=== PATIENT | female | born 1970 | race Caucasian/White ===

== ENCOUNTER 2017-04-21 20:01 | Emergency (ER) | payer BC, OTHER ==
[2017-04-21 21:51] VITALS: BP 200/110
--- NOTE | 2017-04-21 22:02 | UC ---
Eye Complaint HPI - HPI Summary HPI Summary: 2 DAYS OF BILATERAL EYE REDNESS AND IRRITATION. FEEL ITCHY. EYES ARE RED AND WATERY. HAS INTERMITTENT NAUSEA AND VALENZUELA. HAS PHOTOPHOBIA. WAS SEEING HALOS AROUND LIGHTS YESTERDAY BUT THAT HAS SINCE IMPROVED. PT ALSO REPORTS SIGNIFICANT NASAL CONGESTION THAT SEEMS IMPROVED AFTER CLARITIN. NO FB SENSATION. - History of Current Complaint Chief Complaint: UCEye Stated Complaint: EYES BURNING,CONGESTION,HALOS Time Seen by Provider: 04/21/17 21:22 Hx Obtained From: Patient Hx Last Menstrual Period: 2 WEEKS AGO Onset/Duration: Gradual Onset, Lasting Days, Still Present Severity Initially: Moderate Severity Currently: Moderate Pain Intensity: 7 Pain Scale Used: 0-10 Numeric Location of Injury: Conjunctiva Aggravating Factor(s): Light, Blinking Alleviating Factor(s): Nothing Associated Signs And Symptoms: Positive: Photophobia, Drainage (Clear) - Allergies/Home Medications Allergies/Adverse Reactions: Allergies Allergy/AdvReac Type Severity Reaction Status Date / Time Ciprofloxacin [From Cipro] Allergy Severe HIVES, Verified 04/21/17 22:24 SWELLING Hydrocodone [From Vicodin] Allergy Severe HIVES, Verified 04/21/17 22:24 SWELLING Latex Allergy Intermediate Rash Verified 04/21/17 22:24 Adhesive Tape Allergy Rash Verified 04/21/17 22:24 Home Medications: Home Medications Loratadine [Claritin 10 MG CAP] 10 mg PO ONCE PRN 04/21/17 [History Confirmed ] Thera Tears* ONCE PRN 04/21/17 [History] PMH/Surg Hx/FS Hx/Imm Hx Endocrine History: Hypothyroidism Cardiovascular History: Hypertension - Surgical History Surgical History: Yes Surgery Procedure, Year, and Place: C SECTIONS-1998/2005-TUBAL LIGATION 2005. CYSTS REMOVED FROM RIGHT EYE 2006. CYSTS REMOVED MULTIPLE TIME UNDER BILATERAL ARMS. NOVASURE ABLATION, 2007, [facility]. KNEE SURGERY - Family History Known Family History: Positive: Hypertension Family History: NO FAMILY H/O GLAUCOMA - Social History Alcohol Use: None Alcohol Amount: HOLIDAYS Substance Use Type: None Smoking Status (MU): Former Smoker Amount Used/How Often: PACK A DAY Have You Smoked in the Last Year: No When Did the Patient Quit Smoking/Using Tobacco: 1997 Review of Systems Constitutional: Negative Eyes: Blurred Vision, Drainage, Eye Redness, Photophobia ENT: Nasal Discharge Respiratory: Negative Cardiovascular: Negative Gastrointestinal: Nausea Neurological: Headache All Other Systems Reviewed And Are Negative: Yes Physical Exam Triage Information Reviewed: Yes Appearance: Well-Appearing, Well-Nourished, Pain Distress - MODERATE Vital Signs: Initial Vital Signs Temp 99.1 F 04/21/17 20:32 Pulse 95 04/21/17 20:32 Resp 16 04/21/17 20:32 Pulse Ox 100 04/21/17 20:32 Vital Signs Reviewed: Yes Eyes: Positive: Conjunctiva Inflamed, Discharge - CLEAR ENT: Positive: Hearing grossly normal Neck: Positive: Supple Respiratory: Positive: No respiratory distress, No accessory muscle use Cardiovascular: Positive: Pulses Normal Abdomen Description: Positive: Soft Musculoskeletal: Positive: No Edema Neurological: Positive: Alert Psychological: Positive: Age Appropriate Behavior Skin: Negative: rashes Eye Complaint Course/Dx - Course Course Of Treatment: DUE TO PT C/O EYE PAIN/REDNESS, NAUSEA, VALENZUELA, HALOS AND DANGEROUSLY ELEVATED BP WILL SEND TO [facility] ED FOR FURTHER EVALUATION. - Differential Dx/Diagnosis Provider Diagnoses: 1. UNCONTROLLED HYPERTENSION. 2. BILATERAL EYE PAIN/REDNESS Discharge - Discharge Plan Condition: Stable Disposition: OTHER Discharge Disposition Comment: TO [facility] ED BY PRIVATE CAR Patient Education Materials: Hypertensive Crisis (ED) Referrals: Levi Saldana MD [Primary Care Provider] - If Needed Additional Instructions: GO DIRECTLY TO THE [facility] ED FROM HERE FOR FURTHER EVALUATION OF YOUR ELEVATED BP AND YOUR EYE PAIN.
== END 2017-04-21 22:02 ==
LOC: UCEAST 20:01
DX: H57.8 Other specified disorders of eye and adnexa (principal); Z88.1 Allergy status to other antibiotic agents; Z91.040 Latex allergy status; Z88.5 Allergy status to narcotic agent; Z91.048 Other nonmedicinal substance allergy status; E03.9 Hypothyroidism, unspecified; Z87.891 Personal history of nicotine dependence
CPT/HCPCS: 99212; G0463

== ENCOUNTER 2017-04-21 22:19 | Emergency (ER) | payer BC ==
[2017-04-21 22:24] VITALS: BP 234/121
== END 2017-04-21 23:09 | disposition left against medical advice (07) ==
LOC: ED 22:19
DX: H57.10 Ocular pain, unspecified eye (principal); H53.9 Unspecified visual disturbance; Z53.21 Procedure and treatment not carried out due to patient leaving prior to being seen by health care provider

== ENCOUNTER 2017-05-20 05:52 | Day surgery (SDC) | payer BC, OTHER ==
[2017-05-20] MEDS ORDERED: Metoclopramide TAB* 10 MG PO ONE (06:00)
[2017-05-20] MEDS ORDERED: Famotidine IV* 10 MG/ML 2 ML (20 mg) IV ONE (06:00)
[2017-05-20] MEDS ORDERED: Buffered Lidocaine 0.9% SYRIN* 5 ML/SYR SYRINGE INTRADERM ONE (06:00)
[2017-05-20] MEDS ORDERED: Famotidine IV* 10 MG/ML 2 ML (20 mg) ONE (06:01)
[2017-05-20] MEDS ORDERED: Buffered Lidocaine 0.9% SYRIN* 5 ML/SYR SYRINGE ONE (06:02)
[2017-05-20] MEDS ORDERED: Metoclopramide TAB* 10 MG ONE (06:02)
[2017-05-20] MEDS ORDERED: ceFAZolin 2 GM PREMIX (*) 2 GM/50 ML BAG IVPB ONE (06:02)
[2017-05-20] MEDS ORDERED: Ondansetron INJ* 2 MG/ML VIAL ONE ×2 (07:12→10:12)
[2017-05-20] MEDS ORDERED: Propofol* 10 MG/ML 20 ML BTL IV PUSH ONE ×3 (07:12→09:01)
[2017-05-20] MEDS ORDERED: Ketorolac INJ* 30 MG/ML 1 ML VIAL ONE (07:12)
[2017-05-20] MEDS ORDERED: Lidocaine 2% PF * 5 ML VIAL ONE (07:12)
[2017-05-20] MEDS ORDERED: KETAMINE HCL* 50 MG/ML 10 ML VIAL ONE (07:12)
[2017-05-20] MEDS ORDERED: fentaNYL* 50 MCG/ML 2 ML VIAL (100 MCG VIAL) ONE (07:12)
[2017-05-20] MEDS ORDERED: Labetalol IV* 5 MG/ML 20 ML VIAL ONE (07:12)
[2017-05-20] MEDS ORDERED: Dexamethasone IV* 4 MG/ML 1 ML (4 MG) ONE (07:12)
[2017-05-20] MEDS ORDERED: Midazolam* 1 MG/ML 10 ML VIAL (10 MG) ONE (07:12)
[2017-05-20] MEDS ORDERED: Bupivacaine 0.5% SDV PF* 30 ML VIAL ONE ×2 (07:39→07:56)
[2017-05-20] MEDS ORDERED: Lidocaine 1% MPF wEPI 200,000* 30 ML SDV ONE (07:56)
[2017-05-20] MEDS ORDERED: Ondansetron INJ* 2 MG/ML VIAL IV PRN (08:38)
[2017-05-20] MEDS ORDERED: fentaNYL* 50 MCG/ML 2 ML VIAL (100 MCG VIAL) IV PRN (08:38)
--- NOTE | 2017-05-20 10:53 | OP ---
DATE OF OPERATION: 05/20/17 [facility] DATE OF : 70 SURGEON: Russell Mckinley MD SENIOR BUSINESS ARCHITECT: Chika Perales RPA ANESTHESIOLOGIST: Hakan Dunn MD ANESTHESIA: Spinal and sedation. PRE-OP DIAGNOSES: 1. Patellofemoral syndrome, right knee. 2. Chondromalacia patella, right knee. POST-OP DIAGNOSES: 1. Patellofemoral syndrome, right knee. 2. Chondromalacia patella, right knee. OPERATIVE PROCEDURE: 1. Right knee diagnostic arthroscopy. 2. Anteromedialization, tibial tubercle. ESTIMATED BLOOD LOSS: 60 cc. COMPLICATIONS: None. SUMMARY: Ms. Tobar is a 46-year-old female who had injured her knee at work when she stepped in a hole. She initially had more troubles along the back side of the knee, but since then had more troubles about the anterior aspect of the knee. She had been treated extensively with conservative treatments and did undergo a knee arthroscopy with a lateral release. That, however, gave her some temporary relief, but as time went by, she lost all the effects of it. She continued to have very specific pain about the patella, especially with going up and down stairs, hills and having the knee bent for long periods of time. I discussed with her that an anteromedialization should work well to decrease her pain and improve her function. We even did discuss patellofemoral replacement a little bit, but considering that at the time of arthroscopy, she did not have exposed bone, I did not think joint replacement would be our next best step. Risks of surgery such as infection, scar formation , stiffness, DVT, pulmonary embolism, extensor mechanism failure, and continued pain were some of the risks discussed. She had wished to proceed. DESCRIPTION OF PROCEDURE: The patient was brought to the OR and spinal anesthesia was introduced. Right knee was prepped and then draped. Skin over the incision layer was infiltrated using 0.5% Marcaine and 1% lidocaine with epinephrine. Skin had been marked about 5 cm downward from the tibial tubercle , so I could have adequate exposure and I came upwards a little bit to the inferior pole of patella, so I could see the inferior pole of the patella as well. I began with a knee arthroscopy and lateral portal was made first using an 11 blade. Blunt trocar at the sheath was easily introduced into the knee and passed under the patella. Camera was introduced into the sheath and the knee was allowed to insufflate. Pulling back, patellofemoral joint was nicely visualized, it could be seen how she had overhang and tilt with just sitting there, the patella could be seen sitting off to the side. With flexion of the knee, she articulated mostly on the lateral facet and did not fully engage into the notch. Scope was removed and attention was turned anteriorly. Skin incision was made using a 10 blade and was carried down to the extensor mechanism. Mets was then used to elevate the soft tissues so that she had full thickness flaps and I had nice exposure of the anterior crest of the tibia along with the tibial tubercle. Small bleeders encountered were ligated using electrocautery. Periosteum was sharply incised on both medial and lateral sides of the tibial tubercle and carried downwards for about 5 cm. This was measured. Espino was then used on the lateral side to peel some of the muscle away from the bone so that it would have nice exposure. A 1.5 drill was then used to score the medial and lateral sides where I would do the osteotomy. Osteotome was then used to connect the dots first on the medial and then on the lateral side and it could be seen where I had nicely, measuring down for 5 cm from the attachment of the patellar tendon. I then drilled a hole with a 2.5 drill and placed a 3.5 screw so that I could then rotate the tibial tubercle. Osteotome was then used to score the crest of the tibia right in that area. With placing 4 of the osteotomes together, it could be seen how I could nicely anteriorize the tibial tubercle and then with pushing, I was able to push over a little bit as well. It was seen where I had some overhang where I had the raw exposed bone. Bony block was called for and was trimmed so that it fit nicely under the tubercle and osteotomes were removed. With holding her over, I thought I had a nice 7 to 8 mm of medialization and hole was drilled and a screw was placed to hold this in position. Nice positioning was obtained. Scope was reentered into the knee joint and it could be seen now where she tracked more midline and came right down the notch as opposed to sitting just on the lateral facet. Lateral release had been done once again. Knee was copiously pulse lavaged. A little bit of bone wax was placed on the exposed lateral side where the bone had been lifted. A little bit of the capsule and fascia were brought together, but there was a very specific gap where the anterior compartment had been pulled away from that portion of the bone. Subcutaneous tissues were reapproximated with 2-0 Vicryl. Skin was closed using nylon. Sterile dressing and a knee immobilizer along with a Cryo/ Cuff were all applied in the OR. The patient was then awakened, stable on transfer to the recovery room. DISPOSITION/DISCHARGE SUMMARY: Ms. Tobar is a 46-year-old female who just underwent anterior medialization of the tibial tubercle. She tolerated the procedure well with no complications. She is currently rolling towards recovery room. When she wakes a bit more from her sedation, can tolerate p.o., has her pain well controlled, and void, she will be discharged home. Script for [facility]art will be e- scribed in. She has instructions to keep her dressing clean , dry, and intact for the next 3 days, but after that may take dressing down, cover sutures with a large gauze. She may shower, wash, and get it wet, but should not soak it. She should continue with the immobilizer and not bend the knee. If there are any problems, there are instructions to give the office a call. Otherwise, I would like to see her in the office in approximately 7 to 10 days, remove her sutures, and we will continue with the knee immobilizer for 4 weeks where she will not bend. At 4 weeks, we will start a gentle range of motion program. [id number]/[facility] #: [id number] ANUP
[2017-05-20] MEDS ORDERED: oxyCODONE/Acetamin 5/325 MG* TAB ONE (11:48)
[2017-05-20] MEDS ORDERED: Enalaprilat IV* 1.25 MG/ML 2 ML VIAL (2.5 MG) ONE (13:10)
--- NOTE | 2017-05-20 14:09 | RAD ---
HISTORY: Status post radiosurgery COMPARISONS: February 25, 2017 VIEWS: 3, Frontal and lateral views of the right knee FINDINGS: BONE DENSITY: Normal. BONES: The patient is status post graft placement along the proximal tibia. There is no hardware failure or osteolysis. JOINTS: There is no arthropathy. ALIGNMENT: There is no dislocation. SOFT TISSUES: Unremarkable. OTHER FINDINGS: None. IMPRESSION: POST SURGICAL CHANGE TO THE PROXIMAL TIBIA
[2017-05-20 15:24] VITALS: BP 159/84
== END 2017-05-20 15:00 | disposition home or self-care (01) ==
LOC: OR 05:52
PROVIDERS: ATTEND Orthopaedic Surgery
DX: M22.2X1 Patellofemoral disorders, right knee (principal); M22.41 Chondromalacia patellae, right knee; Z87.891 Personal history of nicotine dependence; I10 Essential (primary) hypertension; E03.9 Hypothyroidism, unspecified; F41.9 Anxiety disorder, unspecified
CPT/HCPCS: A9270-GY; C1713; J0690; J1100; J1885; J2001; J2250; J2405; J2704; J3010

== ENCOUNTER 2018-05-13 15:33 | Emergency (ER) | payer BC, OTHER ==
[2018-05-13 16:01] VITALS: BP 177/90
== END 2018-05-13 16:56 | disposition left against medical advice (07) ==
LOC: UCEAST 15:33
DX: R05 Cough (principal); R09.89 Other specified symptoms and signs involving the circulatory and respiratory systems; Z53.21 Procedure and treatment not carried out due to patient leaving prior to being seen by health care provider

== ENCOUNTER 2018-12-06 20:06 | Emergency (ER) | payer BC ==
--- OUTSIDE RECORDS SUMMARY | 2018-12-06 20:16 | XMS REPORT | Continuity of Care Document ---
:1970 External Reference #:[id number] Author Name Elsy Gates Care Team Providers Name Role Phone Levi Saldana MD Primary Care Physician Unavailable Payers Date Identification Numbers Payment Provider Subscriber Effective: 2015 Policy Number: [id number] [facility] Insurance [facility] Keely Tobar Onset: 2015 Group Number: [id number] [address] [id number] Group Name: [id number] [place] [address] [place] Expires: 2015 Policy Number: [id number] [facility] Insurance [facility] Keely Tobar Onset: 2015 Group Number: [id number] [address] [id number] Group Name: [id number] [place] [id number] PayID: [place] Onset: 2009 Policy Number: [id number] Sherita Hollis Keely Tobar Group Number: [id number] [address] PayID: [place] [address] Expires: 2016 Policy Number: [id number] [facility] Insurance [facility] Keely Tobar Onset: 2015 Group Number: [id number] [address] [id number] Group Name: [id number] [place] [id number] PayID: [place] Problems Active Problems Provider Date H/O: hypertension Russell Mckinley M.D. Onset: 12/15/2014 Dyspnea Russell Mckinley M.D. Onset: 12/15/2014 Heartburn Russell Mckinley M.D. Onset: 12/15/2014 Gastroesophageal reflux disease Russell Mckinley M.D. Onset: 12/15/2014 Finding of frequency of urination Russell Mckinley M.D. Onset: 12/15/2014 Anxiety Russell Mckinley M.D. Onset: 12/15/2014 Hypothyroidism Russell Mckinley M.D. Onset: 12/15/2014 Knee joint effusion Russell Mckinley M.D. Onset: 01/07/2018 Chondromalacia of patella Russell Mckinley M.D. Onset: 08/09/2016 Strain of other muscle(s) and tendon(s) of Russell Mckinley M.D. Onset: 2014 posterior muscle group at lower leg level, right leg, subsequent encounter Derangement of knee Russell Mckinley M.D. Onset: 04/07/2015 Sprain of knee and leg Russell Mckinley M.D. Onset: 03/09/2015 Calcific tendinitis of shoulder Russell Mckinley M.D. Onset: 12/15/2014 Social History Type Date Description Comments Sex Unknown Lives With ETOH Use Denies alcohol use Tobacco Use Start: Unknown End: Patient is a former smoker Unknown Smoking Status Reviewed: 12/04/18 Patient is a former smoker Exercise Type/Frequency Walks daily Allergies, Adverse Reactions, Alerts Active Allergies Reaction Severity Comments Date Vicodin 12/15/2014 Cipro 12/15/2014 Latex 12/15/2014 Adhesive Tape 12/15/2014 Medications Active Medications SIG Qnty Indications Ordering Provider Date Toilet Seat Elevator one toilet seat Russell Mckinley, 05/08/2017 Misc elevator M.DPhyllis Levothyroxine Sodium 1 by mouth every Unknown 112MCQ day Tablets Spironolactone 1 by mouth every Unknown 100mg day Tablets History Medications Meloxicam take one tablet 30tabs Z47.89 Russell Mckinley, 10/22/2017 - 15mg Tablets by mouth every M.D. 11/11/2017 day x 10 days, then take daily as needed Ibuprofen 200 400-600mg every 120tabs Russell Mckinley, 05/20/2017 - 200mg 6 hours as M.D. 12/01/2018 Tablets needed for pain. Aspirin 1 tablet daily 30tabs Russell Mckinley, 05/20/2017 - 325mg Tablets after surgery M.D. 11/18/2017 by mouth post-operativel y Acetaminophen-Codeine one to two 90tabs Russell Mckinley, 05/20/2017 - #3 tablets as M.D. 11/11/2017 300-30mg Tablets needed orally for pain every 4 -6 hours Ondansetron one tablet 10tabs Russell Mckinley, 05/20/2017 - 4mg Tablets every 8 hours M.D. 12/02/2018 Dispers as needed for nausea Shower Chair Shower Chair Russell Mckinley, 05/08/2017 - s/p knee M.D. 11/11/2017 surgery Neurontin 1 by mouth 30caps Russell Mckinley, 03/14/2016 - 300mg every night at M.D. 04/16/2016 Capsules bedtime Percocet take 1-2 pills 30tabs S83.241A Russell Mckinley, 12/23/2015 - 5-325mg every 4-6 hours M.D. 01/11/2016 Tablets as needed pain Valium take one tablet 2tabs Russell Mckinley, 11/04/2015 - 5mg Tablets by mouth one M.D. 03/14/2016 hour prior to mri. may take second tab one hour later if needed. Voltaren apply 4 grams 500gm Russell Mckinley, 09/15/2015 - 1% Gel to affected M.D. 2015 area twice a day as needed Mobic once daily with 30tabs Russell Mckinley, 05/12/2015 - 15mg Tablets food M.D. 2015 Flexeril 1 by mouth qhs 30tabs Russell Mckinley, 03/09/2015 - 10mg Tablets as needed M.D. 04/16/2016 Levothyroxine Sodium 1 by mouth Russell Mckinley, 12/15/2014 - every day M.D. 08/26/2017 200mcg Tablets Neurontin 1 by mouth 30caps Russell Mckinley, 12/15/2014 - 300mg every night at M.D. 03/08/2015 Capsules bedtime Naprosyn 1 by mouth 60tabs Russell Mckinley, 12/15/2014 - 375mg Tablets twice a day as M.D. 03/08/2015 needed Lisinopril Unknown - 05/07/2017 Fluticasone Unknown - 2015 Hydrocodone 1 tab every 6 Unknown - Bitartrate/Acetaminop hours 03/08/2015 hen 2.5-325mg Tablets Spironolactone take 1 tablet Unknown - 25mg by mouth once 05/07/2017 Tablets daily Chlorthalidone Unknown - 25mg 05/07/2017 Tablets Naproxen Sodium 1 tab as needed Unknown - 220mg 01/13/2018 Tablets Ibuprofen 200 1 twice a day Unknown - 200mg as needed 12/09/2017 Tablets Lisinopril 1 by mouth Unknown - 40mg Tablets every day 12/09/2017 Trulicity sc weekly Unknown - 0.75mg/0.5ML 09/16/2017 Solution Pen-Inject Chlorthalidone 1 by mouth Unknown - 25mg every day 12/03/2018 Tablets Vital Signs Date Vital Result Comment 12/04/2018 9:13am Height 62 inches 5'2" Weight 219.12 lb Heart Rate 78 /min BP Systolic Sitting 128 mmHg BP Diastolic Sitting 80 mmHg Body Temperature 98.1 F BMI (Body Mass Index) 40.1 kg/m2 02/04/2018 1:26pm Height 62 inches 5'2" Weight 216.00 lb Heart Rate 76 /min BP Systolic Recheck 124 mmHg BP Diastolic Recheck 76 mmHg Respiratory Rate 16 /min Body Temperature 98.4 F BMI (Body Mass Index) 39.5 kg/m2 01/07/2018 1:57pm Height 62 inches 5'2" Weight 220.00 lb Heart Rate 72 /min BP Systolic Recheck 152 mmHg BP Diastolic Recheck 88 mmHg Respiratory Rate 16 /min Body Temperature 98.2 F BMI (Body Mass Index) 40.2 kg/m2 11/26/2017 1:01pm Height 62 inches 5'2" Weight 217.00 lb Heart Rate 72 /min BP Systolic 160 mmHg BP Diastolic 94 mmHg Respiratory Rate 16 /min Body Temperature 98.6 F BMI (Body Mass Index) 39.7 kg/m2 10/22/2017 9:21am Height 62 inches 5'2" Weight 214.00 lb Heart Rate 76 /min BP Systolic Recheck 132 mmHg BP Diastolic Recheck 84 mmHg Respiratory Rate 16 /min Body Temperature 98.5 F BMI (Body Mass Index) 39.1 kg/m2 09/24/2017 10:15am Height 62 inches 5'2" Weight 212.00 lb Heart Rate 80 /min BP Systolic Recheck 148 mmHg BP Diastolic Recheck 86 mmHg Respiratory Rate 16 /min Body Temperature 98.2 F BMI (Body Mass Index) 38.8 kg/m2 09/03/2017 11:10am Height 62 inches 5'2" Weight 216.00 lb Heart Rate 80 /min BP Systolic Recheck 124 mmHg BP Diastolic Recheck 78 mmHg Respiratory Rate 16 /min Body Temperature 98.1 F BMI (Body Mass Index) 39.5 kg/m2 08/01/2017 10:00am Height 62 inches 5'2" Weight 210.00 lb Heart Rate 76 /min BP Systolic Recheck 162 mmHg BP Diastolic Recheck 88 mmHg Respiratory Rate 16 /min Body Temperature 98.4 F BMI (Body Mass Index) 38.4 kg/m2 07/11/2017 8:06am Height 62 inches 5'2" Weight 210.00 lb Heart Rate 80 /min BP Systolic Recheck 132 mmHg BP Diastolic Recheck 86 mmHg Respiratory Rate 16 /min Body Temperature 98.7 F BMI (Body Mass Index) 38.4 kg/m2 06/20/2017 9:05am Height 62 inches 5'2" Weight 215.00 lb Heart Rate 80 /min BP Systolic Recheck 126 mmHg BP Diastolic Recheck 84 mmHg Respiratory Rate 16 /min Body Temperature 98.5 F BMI (Body Mass Index) 39.3 kg/m2 05/30/2017 10:57am Height 62 inches 5'2" Weight 210.00 lb Heart Rate 80 /min BP Systolic Recheck 128 mmHg BP Diastolic Recheck 84 mmHg Respiratory Rate 16 /min Body Temperature 98.7 F BMI (Body Mass Index) 38.4 kg/m2 05/08/2017 8:55am Height 62 inches 5'2" Weight 215.00 lb BP Systolic 128 mmHg BP Diastolic 82 mmHg Respiratory Rate 20 /min Pain Level 3 BMI (Body Mass Index) 39.3 kg/m2 03/27/2017 9:01am Height 62 inches 5'2" Weight 215.00 lb BP Systolic 120 mmHg BP Diastolic 72 mmHg Respiratory Rate 20 /min Pain Level 3 BMI (Body Mass Index) 39.3 kg/m2 02/06/2017 11:09am Height 62 inches 5'2" Weight 215.00 lb BP Systolic 124 mmHg BP Diastolic 80 mmHg Respiratory Rate 20 /min Pain Level 7 BMI (Body Mass Index) 39.3 kg/m2 12/19/2016 11:04am Height 62 inches 5'2" Weight 215.00 lb Heart Rate 76 /min BP Systolic 130 mmHg BP Diastolic 80 mmHg Respiratory Rate 16 /min Body Temperature 98.8 F Pain Level 7 BMI (Body Mass Index) 39.3 kg/m2 10/31/2016 10:45am Height 62 inches 5'2" Weight 215.00 lb Respiratory Rate 16 /min Body Temperature 97.7 F Pain Level 7 BMI (Body Mass Index) 39.3 kg/m2 09/19/2016 11:22am Height 62 inches 5'2" Weight 205.00 lb Heart Rate 205 /min Respiratory Rate 205 /min Body Temperature 205.0 F Pain Level 5 BMI (Body Mass Index) 37.5 kg/m2 08/09/2016 11:02am Height 62 inches 5'2" Weight 205.00 lb Heart Rate 72 /min BP Systolic Recheck 140 mmHg BP Diastolic Recheck 86 mmHg Respiratory Rate 16 /min Body Temperature 98.5 F BMI (Body Mass Index) 37.5 kg/m2 05/16/2016 3:38pm Height 62 inches 5'2" Weight 210.00 lb Heart Rate 77 /min Respiratory Rate 19 /min Pain Level 4 BMI (Body Mass Index) 38.4 kg/m2 04/11/2016 10:49am Height 62 inches 5'2" Weight 210.00 lb Pain Level 5 BMI (Body Mass Index) 38.4 kg/m2 03/14/2016 10:22am Height 62 inches 5'2" Weight 210.00 lb Pain Level 7 BMI (Body Mass Index) 38.4 kg/m2 02/01/2016 12:59pm Height 62 inches 5'2" Weight 210.00 lb Pain Level 4 BMI (Body Mass Index) 38.4 kg/m2 01/11/2016 12:58pm Height 62 inches 5'2" Weight 210.00 lb Body Temperature 98.9 F Pain Level 5 BMI (Body Mass Index) 38.4 kg/m2 12/23/2015 2:17pm Height 62 inches 5'2" Weight 210.00 lb Heart Rate 76 /min BP Systolic Sitting 132 mmHg BP Diastolic Sitting 80 mmHg Respiratory Rate 16 /min Pain Level 5 BMI (Body Mass Index) 38.4 kg/m2 11/30/2015 9:01am Height 62 inches 5'2" Weight 210.00 lb Heart Rate 64 /min Respiratory Rate 16 /min Pain Level 6 BMI (Body Mass Index) 38.4 kg/m2 10/27/2015 12:00pm Height 62 inches 5'2" Weight 210.00 lb Heart Rate 68 /min Respiratory Rate 16 /min Pain Level 6 BMI (Body Mass Index) 38.4 kg/m2 09/15/2015 3:31pm Height 62 inches 5'2" Weight 210.00 lb Pain Level 5 BMI (Body Mass Index) 38.4 kg/m2 08/04/2015 11:37am Height 62 inches 5'2" Weight 210.00 lb Pain Level 3 BMI (Body Mass Index) 38.4 kg/m2 06/15/2015 11:27am Height 62 inches 5'2" Weight 210.00 lb BMI (Body Mass Index) 38.4 kg/m2 05/12/2015 10:32am Height 62 inches 5'2" Weight 210.00 lb BMI (Body Mass Index) 38.4 kg/m2 04/07/2015 9:44am Height 62 inches 5'2" Weight 210.00 lb Pain Level 6 BMI (Body Mass Index) 38.4 kg/m2 03/09/2015 9:34am Height 62 inches 5'2" Weight 210.00 lb Pain Level 5 daily, increases with driving BMI (Body Mass Index) 38.4 kg/m2 12/15/2014 11:31am Height 62 inches 5'2" Weight 210.19 lb Heart Rate 83 /min BP Systolic 186 mmHg BP Diastolic 113 mmHg Respiratory Rate 18 /min Pain Level 7 BMI (Body Mass Index) 38.4 kg/m2 Results Test Date Facility Test Result H/L Range Note Laboratory test 05/20/2017 [facility] Cancellous Block SEE RESULTS 1, [address] [place] [address] NOTE> [phone] Laboratory test 12/29/2015 [facility] Surgical SEE RESULT [address] [place] [address] [phone] 1 CHONDROMALACIA PATELLAE, RIGHT KNEE, PATELLOFEMORA 2 SEE RESULTS BELOW [id number] CAN BLOCK TRANSFUSED 05/20/17 0716 3 SEE RESULT BELOW Name: KEELY TOBAR : [address]: Russell Mckinley MD Acct: [id number] Unit: [id number] AGE: 45 Location: OR Re12/29/15 SEX: F Status: REG [facility] SPEC: [id number] SUKHJINDER: 12/29/15-[address] [facility] DR: Russell Mckinley MD REQ: [id number] RECD: 12/29/150 STATUS: SOUT _ ORDERED: LEVEL III FINAL DIAGNOSIS Knee, right, arthroscopic shavings: -- Chronic synovitis. PRE-OPERATIVE DIAGNOSIS Medial meniscus right knee tear GROSS DESCRIPTION The specimen is received in formalin labeled, Right Knee Shavings, and consists of a 2.1 x 2.1 x 0.4 cm aggregate of yellow and white tissue fragments. Instructor Knitting sections, one cassette. Signed (signature on file) Amy Hicks MD 1318 END OF REPORT * ML=Testing performed at Main Lab DEPARTMENT OF PATHOLOGY, [address] [place] [address] Jean Pierre Nash M.D. Director [facility] # [id number] Procedures Date Code Description Status 01/07/2018 74178 Inject/Drain Joint/Bursa Major W/O US Completed 05/20/2017 90265 Anterior Tibial Tubercleplasty Completed 05/20/2017 08610 Anterior Tibial Tubercleplasty Completed 12/29/2015 98754 Arthroscopy, Knee,Surgical;Debridement/Shaving Articular Completed Counts Include [facility] 12/29/2015 51208 Arthroscopy, Knee,Surgical;Debridement/Shaving Articular Completed Counts Include [facility] 12/29/2015 02213 Inject/Drain Joint/Bursa Major W/O US Completed 12/05/2011 67578 EKG, Interpretation Only Completed Encounters Type Date Location Provider Dx Diagnosis Office Visit 02/04/2018 Orthopedic Neptali Chavez.2x1 [facility] 1:30p [facility] Salgado disorders, right knee AT [facility] Office Visit 01/07/2018 Orthopedic Russell Mckinley M25.461 Effusion, right knee 2:30p [facility] Sal[facility] AT [facility] Office Visit 11/26/2017 Orthopedic Solis Chavez2.2x1 [facility] 1:15p [facility] Salgado disorders, right knee AT [place] Z47.89 Encounter for other orthopedic aftercare Office Visit 10/22/2017 Richar Gunderson.2x1 [facility] 9:30a Services Of Laney Mckinley M.D. disorders, right AT [place] knee Z47.89 Encounter for other orthopedic aftercare Office Visit 09/24/2017 Richar Gunderson.2x1 [facility] 10:30a [facility] Mckinley M.D. disorders, right AT [facility] knee Z47.89 Encounter for other orthopedic aftercare Office Visit 09/03/2017 Richar Gunderson.2x1 [facility] 11:15a [facility]y Mckinley M.D. disorders, right AT [facility] knee Z47.89 Encounter for other orthopedic aftercare Office Visit 05/08/2017 Orthopedic Russell M22.41 Chondromalacia 9:00a Services Of Naomi Mckinley patellae, right knee C.M.A. M22.41 Chondromalacia patellae, right knee M22.2x1 [facility] disorders, right knee M22.2x1 [facility] disorders, right knee Office Visit 03/27/2017 Orthopedic Russell M22.41 Chondromalacia 9:15a Services Of Naomi Mckinley patellae, right knee C.M.A. M22.2x1 [facility] disorders, right knee Office Visit 02/06/2017 Orthopedic Chika M22.41 Chondromalacia 11:00a Services Of MACY Perales patellae, right C.M.A. knee M22.2x1 [facility]ellofemoral disorders, right knee Office Visit 12/19/2016 Orthopedic Russell M22.41 Chondromalacia 11:00a Services Of Naomi Mckinley patellae, right knee C.M.A. M22.2x1 [facility]ellofemoral disorders, right knee Office Visit 10/31/2016 Orthopedic Russell M22.41 Chondromalacia 10:45a Services Of Naomi Mckinley patellae, right knee C.M.A. M22.2x1 [facility] disorders, right knee Office Visit 09/19/2016 Orthopedic Russell Ely2.41 Chondromalacia 11:30a Services Of Naomi Mckinley patellae, right knee C.M.A. M22.2x1 [facility]ell[facility] disorders, right knee Office Visit 08/09/2016 Orthopedic Russell Ely2.41 Chondromalacia 11:00a Services Of Laney Mckinley M.D. patellae, right knee AT [place] M22.2x1 Patellofemoral disorders, right knee Office Visit 05/16/2016 Orthopedic Russell Gunderson.2x1 [facility] 3:45p Services Of Naomi Mckinley disorders, right C.M.A. knee M22.41 Chondromalacia patellae, right knee Office Visit 04/11/2016 Orthopedic Russell Ely2.2x1 [facility] 11:00a Services Of Arlen, M.D. disorders, right C.M.A. knee M22.41 Chondromalacia patellae, right knee Office Visit 11/30/2015 9:20a Orthopedic Yary S83.241A Oth tear of Services Of JENN Prajapati medial C.M.A. meniscus, current injury, r knee, init S83.241A Oth tear of medial meniscus, current injury, r knee, init Office Visit 10/27/2015 Orthopedic Russell Ely2.2x1 [facility] 11:45a Services Of Naomi Mckinley disorders, right C.M.A. knee Office Visit 09/15/2015 Orthopedic Russell M22.2x1 [facility] 3:45p Services Of Naomi Mckinley disorders, right C.M.A. knee Office Visit 08/04/2015 Orthopedic Russell M22.2x1 [facility] 11:45a Services Of Naomi Mckinley disorders, right C.M.A. knee M22.2x1 Patellofemoral disorders, right knee S86.111D Strain musc/tend post grp at low leg level, right leg, subs S86.111D Strain musc/tend post grp at low leg level, right leg, subs Office Visit 06/15/2015 Orthopedic Russell M22.2x1 [facility] 11:15a Services Of Naomi Mckinley disorders, right C.M.A. knee Office Visit 05/12/2015 Richar Wells M22.2x1 [facility]ellofemoral 10:45a Services Of Naomi Mckinley disorders, right C.M.A. knee Office Visit 04/07/2015 Orthopedic Russell S86.111D Strain musc/tend 9:45a Services Of Naomi Mckinley post grp at low leg C.M.A. level, right leg, subs M22.2x1 Patellofemoral disorders, right knee Office Visit 03/09/2015 9:30a Richar Wells S86.111A Strain musc/tend Services Of Naomi Mckinley post grp at low C.M.A. leg level, right leg, init Office Visit 12/15/2014 11:00a Richar Wells 726.11 Tendinitis Services Of Naomi Mckinley Calcifying C.M.A. 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 Disturbance 782.0 Skin Sensation Disturbance Plan of Treatment 12/04/2018 - Russell Mckinley M.D.T84.84xA Pain due to internal orthopedic prosthetic devices, implantsFollow up:10 days after surgery
[2018-12-06 20:34] VITALS: BP 164/103
--- NOTE | 2018-12-06 21:47 | UC ---
Shoulder Pain HPI - History of Current Complaint Chief Complaint: UCUpperExtremity Stated Complaint: ARM PAIN Time Seen by Provider: 12/06/18 21:33 Hx Obtained From: Patient Hx Last Menstrual Period: 2 WEEKS AGO Pain Intensity: 9 - Allergies/Home Medications Allergies/Adverse Reactions: Allergies Allergy/AdvReac Type Severity Reaction Status Date / Time Adhesive Tape Allergy Rash, Verified 12/06/18 20:35 blisters ciprofloxacin [From Cipro] Allergy HIVES, Verified 12/06/18 20:35 FACIAL/LIP SWELLING hydrocodone Allergy FACE/LIPS Verified 12/06/18 20:35 SWELLING Latex, Natural Rubber Allergy Hives Verified 12/06/18 20:35 Home Medications: Home Medications Ixekizumab [Taltz Syringe] 12/06/18 [History Confirmed 12/06/18] Naproxen Sodium [Aleve] 2 tab PO ONCE PRN 12/06/18 [History Confirmed 12/06/18] Rosuvastatin (NF) [Crestor (NF)] 10 mg PO 1700 12/06/18 [History Confirmed 12/06] PMH/Surg Hx/FS Hx/Imm Hx Endocrine History: Hypothyroidism, Dyslipidemia Cardiovascular History: Hypertension - Surgical History Surgical History: Yes Surgery Procedure, Year, and Place: C SECTIONS-1998/2005-TUBAL LIGATION 2005. CYSTS REMOVED FROM RIGHT EYE 2006. CYSTS REMOVED MULTIPLE TIME UNDER BILATERAL ARMS. NOVASURE ABLATION, 2007, [facility] [place] KNEE SURGERY X2 - Family History Known Family History: Positive: Hypertension Family History: NO FAMILY H/O GLAUCOMA - Social History Alcohol Use: None Alcohol Amount: HOLIDAYS Substance Use Type: None Smoking Status (MU): Former Smoker Amount Used/How Often: 1/2-1pack A DAY, smoked for 10 years Have You Smoked in the Last Year: No When Did the Patient Quit Smoking/Using Tobacco: 1997 Review of Systems Constitutional: Negative: Fever, Chills Skin: Negative: Rash Respiratory: Negative: Shortness Of Breath, Cough Cardiovascular: Negative: Palpitations, Chest Pain Gastrointestinal: Negative: Abdominal Pain, Vomiting, Diarrhea, Nausea Genitourinary: Positive: Negative Motor: Negative: Weakness Neurovascular: Positive: Decreased Sensation Musculoskeletal: Positive: Arthralgia - See HPI Physical Exam Vital Signs: Initial Vital Signs Temp 97.5 F 12/06/18 20:30 Pulse 91 12/06/18 20:30 Resp 18 12/06/18 20:30 BP 164/103 12/06/18 20:30 Pulse Ox 99 12/06/18 20:30 Shoulder Course/Dx - Differential Dx/Diagnosis Provider Diagnosis: Impingement syndrome of right shoulder Discharge - Sign-Out/Discharge Documenting (check all that apply): Patient Departure All imaging exams completed and their final reports reviewed: No Studies - Discharge Plan Condition: Stable Disposition: HOME Patient Education Materials: Shoulder Pain (ED) Referrals: Levi Saldana MD [Primary Care Provider] - 3 Days Yong Peace MD [Medical Doctor] - 3 Days Additional Instructions: Based on her history and physical I suspect that your shoulder pain is from a shoulder impingement syndrome. Continue taking the naproxen (Aleve) 2 tablets twice daily for the next 5-7 days then you may take as needed for pain. Be sure to take with food. Try applying ice, heat, or alternating ice then heat for 15-20 minutes at least 4 times a day. Rest the arm as much as possible. Avoid any heavy lifting or strenuous activities. Use the range of motion exercises that were demonstrated to you in the clinic to help prevent the shoulder from freezing up. Follow-up with your primary care provider or orthopedic surgery in 3-5 days if symptoms are not improving. Call Saturday morning for an appointment. Seek immediate medical attention in the emergency room if you have any chest pain, shortness of breath, weakness, dizziness, you breakout in a cold sweat, nausea, vomiting, or any worsening of symptoms. - Billing Disposition and Condition Condition: STABLE Disposition: Home
== END 2018-12-06 22:03 | disposition home or self-care (01) ==
LOC: UCEAST 20:06
DX: M75.41 Impingement syndrome of right shoulder (principal); E03.9 Hypothyroidism, unspecified; E78.5 Hyperlipidemia, unspecified; I10 Essential (primary) hypertension; Z91.040 Latex allergy status; Z87.891 Personal history of nicotine dependence
CPT/HCPCS: 99211; G0463